=== PATIENT | male | born 1955 | race Caucasian/White ===

== ENCOUNTER 2018-08-12 09:30 | Outpatient (CLI) | payer BC ==
--- NOTE | 2018-08-12 10:35 | MRI ---
MRI Lumbar Spine Noncontrast: HISTORY: Pain COMPARISON: None FINDINGS: Conus medullaris is normal in morphology and terminates at the L1 level. 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 Incidental disc osteophyte formation at T12-L1 level effacing ventral thecal sac. There is multilevel bilateral degenerative facet hypertrophy. L1-2:No significant stenosis L2-3:Mild central canal stenosis as a result of mild disc bulge L3-4:Mild central canal stenosis as a result of mild disc bulge L4-5:Severe central canal stenosis, with broad-based, right asymmetric disc osteophyte and superimpos ed left paracentral disc protrusion. Moderate left and mild right neural foraminal narrowing. Moderate to severe bilateral facet hypertrophy, greater on the right. L5-S1:Mild central canal stenosis and moderate right subarticular zone narrowing, impinging traversin g right S1 nerve root, as a result of grade 1 spondylolisthesis and associated disc osteophyte complex. Moderate right and mild left neural foraminal stenosis. IMPRESSION: Severe central canal stenosis at L4-5. Additional multilevel degenerative changes as outlined above. Transcribed Date/Time: 08/12/2018 10:58 AM
--- NOTE | 2018-08-12 10:39 | RAD ---
XR Lumbar Spine Min 4 View HISTORY: Back pain. Bilateral radiculopathy. COMPARISON: None. FINDINGS: The vertebral bodies are normal in height. There is mild to moderate degenerative disc narr owing at L4-5 and mild disc narrowing at L5-S1. There is a minimal spondylolisthesis of L5 on S1, this appears to improve slightly in extension. There are marked degenerative facet changes of the low er lumbar spine. Vascular calcifications are noted. IMPRESSION: Arthritic changes of the spine as described above.
== END 2018-08-12 09:31 | disposition home or self-care (01) ==
LOC: BICMRI 09:30
PROVIDERS: ATTEND Neurological Surgery
DX: M51.36 Other intervertebral disc degeneration, lumbar region (principal); M47.816 Spondylosis without myelopathy or radiculopathy, lumbar region; M48.061 Spinal stenosis, lumbar region without neurogenic claudication
CPT/HCPCS: 72110; 72148

== ENCOUNTER 2018-09-08 02:10 | Outpatient (CLI) | payer BC ==
--- NOTE | 2018-09-09 13:15 | EKG ---
Test Reason : Blood Pressure : / mmHG Vent. Rate : 050 BPM Atrial Rate : 050 BPM P-R Int : 176 ms QRS Dur : 086 ms QT Int : 402 ms P-R-T Axes : 037 003 026 degrees QTc Int : 366 ms Sinus bradycardia Otherwise normal ECG No previous ECGs available Confirmed by MIKE VELAZQUEZ, DR. Rubio ([id number]) on 09/09/2018 1:15:14 PM Referred By: ATHIRA Confirmed By:DR. Joanne MCKEON MD
== END 2018-09-08 02:11 | disposition home or self-care (01) ==
LOC: LABBT 02:10
PROVIDERS: ATTEND Neurological Surgery
DX: Z01.810 Encounter for preprocedural cardiovascular examination (principal); M48.062 Spinal stenosis, lumbar region with neurogenic claudication
CPT/HCPCS: 93005; 93010

== ENCOUNTER 2018-09-10 07:09 | Day surgery (SDC) | payer BC ==
[2018-09-08 15:23] VITALS: BMI 30.5
[2018-09-08 16:53] LABS: #Basophils 0.1 thou/uL (0.0-0.2); #Eosinphils 0.1 thou/uL (0.0-0.7); #Lymphocytes 1.8 thou/uL (1.20-3.40); #Monocytes 0.6 thou/uL (0.11-0.59); #Neutrophils 4.6 thou/uL (1.40-6.50); %Eosinophils 1.6 % (0.0-10.0); %Lymphocytes 25.6 % (21.0-51.0); %Monocytes 7.7 % (0.0-10.0); %Neutrophils 64.1 % (42.0-75.0); Hemoglobin 14.4 g/dL (14.0-18.0); Mean Corpuscular HGB CONC 34.1 g/dL (32.0-36.0); Mean Corpuscular Hemoglobin 31.1 pg (27.0-31.0); Mean Corpuscular Volume 91.2 fL (78.0-98.0); Mean Platelet Volume 8.3 fL (7.4-10.4); Platelet Count 215 thou/uL (130-400); RBC Distribution Width 11.3 % (11.5-14.5); Red Blood Cell (RBC) Count 4.62 mill/uL (4.70-6.10); White Blood Cell (WBC) Count 7.2 thou/uL (4.8-10.8)
[2018-09-08 17:17] LABS: Anion Gap 13 mmol/L (10-20); BUN (Urea Nitrogen) 16 mg/dL (8.4-25.7); Calc. Creatinine Clearance 120 mL/min (70-130); Calcium 9.8 mg/dL (7.8-10.44); Carbon Dioxide 26 mmol/L (23-31); Chloride 104 mmol/L (98-107); Estimated GFR-MDRD 85; Glucose 129 mg/dL (80-115); Potassium 4.4 mmol/L (3.5-5.1); Sodium 139 mmol/L (136-145)
[2018-09-10] MEDS ORDERED: Fentanyl 100 MCG/2 ML VIAL ONE (09:27)
[2018-09-10] MEDS ORDERED: HYDROcodone/Acetaminophen 5/325 mg Tablet ONE (13:51)
--- NOTE | 2018-09-10 16:19 | OP ---
DATE OF PROCEDURE: 09/10/2018 [employer]: Bryn. PROCEDURE PERFORMED: L4-L5 laminectomy. DESCRIPTION OF PROCEDURE: The patient was brought to the operating room and intubated. He was rolled in a prone position on gel-filled chest rolls. An incision was made exposing L4 and L5 and the level was confirmed by x-ray. We performed complete L5 and inferior L4 laminectomies completely decompressing the L4-L5 interspace. The wound was then extensively irrigated. MAC hemostasis was secured. Vancomycin powder was applied, and the wound was closed in anatomic layers. Job ID: [id number]
== END 2018-09-10 15:25 | disposition home or self-care (01) ==
LOC: SDC 07:09
PROVIDERS: ATTEND Neurological Surgery
PROC: 01NB0ZZ Release Lumbar Nerve, Open Approach (ICD-10-PCS; principal; 2018-09-10)
DX: M48.062 Spinal stenosis, lumbar region with neurogenic claudication (principal); I10 Essential (primary) hypertension; E78.5 Hyperlipidemia, unspecified
CPT/HCPCS: 76000; J0690; J3010; J3370